=== PATIENT | male | born 1940 | race Caucasian/White ===

== ENCOUNTER 2020-05-20 13:25 | Outpatient (CLI) | payer MEDICARE, SELFPAY ==
[2020-05-20 14:27] LABS: Prostate Specific Antigen 3.6 ng/mL (< OR = 4.0)
== END 2020-05-20 13:26 | disposition home or self-care (01) ==
PROVIDERS: PCP Family Medicine; Visit Provider Urology
DX: R97.20 Elevated prostate specific antigen [PSA] (principal)
CPT/HCPCS: 36415; 84153

== ENCOUNTER 2020-09-16 14:05 | Outpatient (CLI) | payer MEDICARE, SELFPAY ==
--- NOTE | ~2020-09-16 | US_ITS ---
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 COMPARISON: None. FINDINGS: Right and left brachial artery pressures of 111 mm Hg and 126 mm Hg, respectively, are concordant (no rmal difference <= 30 mmHg). The left high thigh pressure index is 1.14 (normal > 1.2). The high righ t thigh pressure index was unable to be obtained due to stenting in the right thigh. The right ankle-brachial index (GERMAN) is 0.87 (normal >= 0.9-1). The right great toe-brachial index (T BI) is 0.55 (normal >= 0.6-0.8). The right lower extremity segmental pressure gradients are normal (n ormal gradients <= 20-30 mmHg between adjacent levels on the same leg or the same levels on the two l egs). Arterial waveforms are biphasic with brisk systolic upstrokes throughout. The left GERMAN is 0.95. The left TBI is 0.67. The left lower extremity segmental pressure gradients are normal. Arterial waveforms are biphasic with brisk systolic upstrokes throughout. IMPRESSION: 1. Arterial occlusive disease to the right lower limb with mildly decreased right high thigh, ankle-b rachial and toe brachial indices. 2. No significant arterial occlusive disease to the left lower limb with normal corresponding left-si ded indices. Reviewed, dictated and finalized at location A. [employer] IMPRESSION: 1. Arterial occlusive disease to the right lower limb with mildly decreased rig ht high thigh, ankle-brachial and toe brachial indices. 2. No significant arterial occlusive disease to the left lower limb with normal corresponding left-sided indices.
== END 2020-09-16 14:06 | disposition home or self-care (01) ==
LOC: ANHIMG 14:13
PROVIDERS: PCP Family Medicine; Visit Provider Internal Medicine Cardiovascular Disease
DX: I73.9 Peripheral vascular disease, unspecified (principal); I77.1 Stricture of artery
CPT/HCPCS: 93923

== ENCOUNTER → 2020-11-09 13:24 | Outpatient (CLI) | payer MEDICARE, SELFPAY ==
--- NOTE | ~2020-11-09 | XR_ITS ---
EXAMINATION: XR chest 2V DATE: 11/09/2020 13:48 INDICATION: Contact with and suspected exposure to asbestos. Left chest pain. TECHNIQUE: Frontal and lateral views of the chest were obtained. COMPARISON: Chest 2 views 09/16/2011 FINDINGS: The chest demonstrates clear lungs without pneumonia, pleural effusion, or pneumothorax. Th e heart size is normal. There are prominent paracardial fat pads. There is a total right shoulder art hroplasty. There are suture anchors in left scapula and humeral head. IMPRESSION: 1. No acute cardiopulmonary disease. Reviewed, dictated and finalized at location A. 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
== END ==
PROVIDERS: PCP Family Medicine; Visit Provider Physician Assistant Medical
DX: Z77.090 Contact with and (suspected) exposure to asbestos (principal); R07.89 Other chest pain
CPT/HCPCS: 71046

== ENCOUNTER → 2020-12-25 01:05 | Outpatient (CLI) | payer MEDICARE, SELFPAY ==
[2020-12-25 19:13] LABS: SARS-CoV-2 RNA PCR Negative
== END ==
PROVIDERS: PCP Family Medicine; Visit Provider Internal Medicine Gastroenterology
DX: Z01.812 Encounter for preprocedural laboratory examination (principal); Z20.822 Contact with and (suspected) exposure to COVID-19
CPT/HCPCS: C9803; U0003; U0005

== ENCOUNTER 2020-12-29 02:56 | Day surgery (SDC) | payer MEDICARE, SELFPAY ==
[2020-12-14 15:51] VITALS: BMI 25.9
[2020-12-29 08:56] VITALS: BP 118/59; PULSE 60; RESP 20; TEMP 36.6; O2SAT 100
[2020-12-29] MEDS: LACTATED RINGERS 1,000 ML 150 ML IV CONT (09:11)
--- NOTE | 2020-12-29 09:22 | WPDANESEPPF ---
Anes - Initial Pre Proc Eval Procedure: Operation Date: 12/29/20 10:00 Proposed Procedures p Colonoscopy - Gerald Oliva MD Date/Time: 12/29/20 09:22 Surgeon: Gerald Oliva MD Pre Op Diagnosis: Positive Cologuard Patient Data Age: 80 Gender: M Height: 5 ft 10 in Weight: 81.5 kg Last Vital Signs Temp 97.8 F 12/29/20 08:56 Pulse 60 12/29/20 08:56 Resp 20 12/29/20 08:56 BP 118/59 L 12/29/20 08:56 Pulse Ox 100 12/29/20 08:56 Allergies Allergy/AdvReac Type Severity Reaction Status Date / Time Penicillins Allergy Mild Unknown Verified 12/29/20 08:52 Sulfa (Sulfonamide Allergy Mild Unknown Verified 12/29/20 08:52 Antibiotics) amoxicillin Allergy Unknown Verified 12/29/20 08:52 Home Medications Medication Instructions Recorded Confirmed Type aspirin 81 mg tablet,delayed 81 mg PO BID #60 tablet 11/09/20 12/14/20 Rx release cholecalciferol (vitamin D3) 125 125 mcg PO DAILY #30 cap 11/09/20 12/14/20 Rx mcg (5,000 unit) capsule finasteride 5 mg tablet 5 mg PO DAILY #30 tablet 11/09/20 12/14/20 Rx metoprolol tartrate 25 mg tablet 25 mg PO DAILY #30 tablet 11/09/20 12/14/20 Rx multivitamin 1 tablet PO DAILY #30 tablet 11/09/20 12/14/20 Rx pantoprazole 40 mg tablet,delayed 40 mg PO QAM #30 tablet 11/09/20 12/14/20 Rx release rosuvastatin 40 mg tablet 40 mg PO DAILY #30 tablet 11/09/20 12/14/20 Rx coenzyme Q10 [Co Q-10] 100 mg PO DAILY 12/14/20 12/14/20 History Patient hx anesthesia problems: none Family hx anesthesia problems: none PMFSH Past Medical History Medical History (Updated 12/29/20 @ 09:20 by Chris Wilkinson MD) Essential hypertension Hyperlipidemia PVD (peripheral vascular disease) with claudication Surgical History Surgical History (Updated 11/09/20 @ 09:28 by Deidra Jean Baptiste) History of heart artery stent History of shoulder surgery Family History Family History (Updated 11/09/20 @ 09:30 by Deidra Jean Baptiste) Other Cerebrovascular accident Lung cancer Social History Social History (Updated 11/09/20 @ 09:30 by Deidra Jean Baptiste) Smoking packs per day: 0.5 Smoking cigarettes per day: 10.0 Years smoked: 12 Smoking pack-years: 6.00 Smoking status: Former smoker Tobacco type: cigarettes Alcohol intake: never Substance use: never Substance use type: does not use Living arrangements: with family Spiritual care concerns: No Anes - Eval Final PreProcedure Day of Procedure 12/29/20 09:22 Patient weight: overweight Heart: regular rate and rhythm Lungs: clear to auscultation Airway: Mallampati scale class III Neurological: alert and oriented Last oral intake: >/= 8 hours ASA classification: III Emergent: no Anesthetic plan: proceed Anesthesia type and monitoring: general GIVS and standard monitoring Informed Consent: The patient's anesthetic plan and its attendant risks and benefits were discussed with the patient/family/POA. Questions were solicited and answers provided to the satisfaction of the patient/family/POA.
--- NOTE | 2020-12-29 09:50 | PM.HPGS ---
History of Present Illness History of Present Illness Consent: Risks, benefits, and alternatives have been discussed and questions answered. Patient agrees to proceed with procedure. Chief complaint: Positive Cologuard Narrative: Joey Lewis is a 80 year old male with cologuard +, last colonoscopy 15 years ago. Review of Systems Constitutional: Constitutional: Denies headache(s) and Denies weakness Eyes: Eyes: Denies blurry vision ENT: Reports Normal hearing present, Denies headache(s) and Denies neck pain Cardiovascular: Cardiovascular: Denies chest pain and Denies dyspnea Respiratory: Respiratory: Denies dyspnea Gastrointestinal: Gastrointestinal: Reports no additional gastrointestinal complaints Genitourinary: Genitourinary: Denies dysuria Musculoskeletal: Musculoskeletal: Denies neck pain Integumentary/Breasts: Skin/Breast: Denies dry skin Neurologic: Reports Normal hearing present, Denies headache(s) and Denies weakness Psychiatric: Psychiatric: Denies anxiety Endocrine: Endocrine: Denies change in body appearance Hematologic/Lymphatic: Hematologic/Lymphatic: Denies easy bleeding Allergic/Immunologic: Allergic/Immunologic: Denies urticaria [facility] Past Medical History Medical History (Updated 12/29/20 @ 09:20 by Chris Wilkinson MD) Essential hypertension Hyperlipidemia PVD (peripheral vascular disease) with claudication Surgical History Surgical History (Updated 11/09/20 @ 09:28 by Deidra Jean Baptiste) History of heart artery stent History of shoulder surgery Family History Family History (Updated 11/09/20 @ 09:30 by Deidra Jean Baptiste) Other Cerebrovascular accident Lung cancer Social History Social History (Updated 11/09/20 @ 09:30 by Deidra Jean Baptiste) Smoking packs per day: 0.5 Smoking cigarettes per day: 10.0 Years smoked: 12 Smoking pack-years: 6.00 Smoking status: Former smoker Tobacco type: cigarettes Alcohol intake: never Substance use: never Substance use type: does not use Living arrangements: with family Spiritual care concerns: No Meds Home Medications and Allergies Home Medications Medication Instructions Recorded Confirmed Type aspirin 81 mg tablet,delayed 81 mg PO BID #60 tablet 11/09/20 12/14/20 Rx release cholecalciferol (vitamin D3) 125 125 mcg PO DAILY #30 cap 11/09/20 12/14/20 Rx mcg (5,000 unit) capsule finasteride 5 mg tablet 5 mg PO DAILY #30 tablet 11/09/20 12/14/20 Rx metoprolol tartrate 25 mg tablet 25 mg PO DAILY #30 tablet 11/09/20 12/14/20 Rx multivitamin 1 tablet PO DAILY #30 tablet 11/09/20 12/14/20 Rx pantoprazole 40 mg tablet,delayed 40 mg PO QAM #30 tablet 11/09/20 12/14/20 Rx release rosuvastatin 40 mg tablet 40 mg PO DAILY #30 tablet 11/09/20 12/14/20 Rx coenzyme Q10 [Co Q-10] 100 mg PO DAILY 12/14/20 12/14/20 History Allergies Allergy/AdvReac Type Severity Reaction Status Date / Time Penicillins Allergy Mild Unknown Verified 12/29/20 08:52 Sulfa (Sulfonamide Allergy Mild Unknown Verified 12/29/20 08:52 Antibiotics) amoxicillin Allergy Unknown Verified 12/29/20 08:52 Vital Signs Vital Signs - 24 hr 12/29/20 08:56 Temperature 97.8 F Pulse Rate 60 Respiratory Rate 20 Blood Pressure 118/59 L Pulse Oximetry 100 Exam Const: General: comfortable and no acute distress HENMT: General nose exam: Normal nares present Eyes: General: appearance normal, both eyes and all related structures Neck: Neck: no JVD Resp: Auscultation: clear to auscultation bilaterally Cardio: Rate: regular rate Rhythm: regular rhythm GI: Inspection: non-distended GI Palp: Yes Soft to palpation Skin: General skin exam: normal color Neuro: General: gait normal Speech: normal speech Extrem: General: normal to inspection Psych: Mental Status: mental status grossly normal Assessment and Plan Assessment and plan (1) Positive colorectal cancer screening using Cologuard test: Code(s)
[2020-12-29 10:16] VITALS: BP 99/62; PULSE 61; RESP 16; O2SAT 100
[2020-12-29 10:26] VITALS: BP 105/62; PULSE 60; RESP 14; O2SAT 99
== END 2020-12-29 10:55 | disposition home or self-care (01) ==
PROVIDERS: PCP Family Medicine; Visit Provider Internal Medicine Gastroenterology
PROC: 0DJD8ZZ Inspection of Lower Intestinal Tract, Via Natural or Artificial Opening Endoscopic (ICD-10-PCS; CPT 45378; principal; 2020-12-29 10:00)
DX: R19.5 Other fecal abnormalities (principal); D12.0 Benign neoplasm of cecum; K57.30 Diverticulosis of large intestine without perforation or abscess without bleeding; K64.8 Other hemorrhoids; I10 Essential (primary) hypertension; E78.5 Hyperlipidemia, unspecified; I73.9 Peripheral vascular disease, unspecified; Z79.82 Long term (current) use of aspirin; Z87.891 Personal history of nicotine dependence
CPT/HCPCS: 45385; 88305; J2704; J7120

== ENCOUNTER → 2021-11-17 10:54 | Outpatient (CLI) | payer MEDICARE, SELFPAY ==
--- NOTE | ~2021-11-17 | XR_ITS ---
EXAMINATION: XR chest 2V EXAM DATE: 11/17/2021 11:34 INDICATION: R05.3 - Chronic cough . TECHNIQUE: Frontal and lateral projections of the chest obtained and reviewed. There is no prior jovany dy for comparison. FINDINGS: The lungs are clear. There are no pleural effusions. The cardiomediastinal silhouette is within normal limits. There is no pneumothorax suspected. Right shoulder replacement. IMPRESSION: No acute cardiopulmonary findings. Reviewed, dictated and finalized at location B. HEMATOLOGY
== END ==
PROVIDERS: PCP Family Medicine; Visit Provider Physician Assistant Medical
DX: R05.3 Chronic cough (principal)
CPT/HCPCS: 71046

== ENCOUNTER 2022-01-18 17:26 | Emergency (ER) | payer MEDICARE, SELFPAY ==
--- NOTE | 2022-01-18 17:36 | ED.MALEGU ---
HPI - Male Genitourinary General Chief complaint: Urogenital-Male Stated complaint: uti complaints Time Seen by Provider: 01/18/22 17:36 Source: patient Mode of arrival: ambulatory Limitations: no limitations History of Present Illness HPI Narrative: Joey Lewis is an 81 yo male with a PMH of BPH, HTN, GERD, high cholesterol, who comes to [facility] with complaints of frequency, burning. burning when he urinates that started at noon today. Has been drinking a lot of water but continues to have blood in urine with frequency. patient has been treated for hyperplasia of prostate and was screened for colon cancer in May of last year using cologuard which was positive and then had a colonoscopy. Had cataract surgery on Sunday Related Data Home Medications Medication Instructions Recorded Confirmed coenzyme Q10 [Co Q-10] 100 mg PO DAILY 12/14/20 01/18/22 Allergies Allergy/AdvReac Type Severity Reaction Status Date / Time Penicillins Allergy Mild Unknown Verified 01/18/22 17:39 Sulfa (Sulfonamide Allergy Mild Unknown Verified 01/18/22 17:39 Antibiotics) amoxicillin Allergy Unknown Verified 01/18/22 17:39 Review of Systems Review of Systems: CONSTITUTIONAL: Denies fever, chills, sweats. EYES: Denies visual changes, redness, discharge. ENT: Denies rhinorrhea, congestion, sore throat, otalgia. CARDIOVASCULAR: Denies chest pain, palpitations, edema. RESPIRATORY: Denies dyspnea, wheezing, cough GASTROINTESTINAL: Denies abdominal pain, nausea, vomiting, diarrhea. GENITOURINARY: has dysuria, has hematuria, no abnormal discharge SKIN: Denies rash or itching. NEUROLOGIC: Denies numbness, or focal weakness. PSYCHIATRIC: Denies anxiety or depression. [facility] Past Medical History Medical History BMI 25.0-25.9,adult BMI 26.0-26.9,adult BPH (benign prostatic hyperplasia) Essential hypertension Hyperlipidemia PVD (peripheral vascular disease) with claudication Surgical History Surgical History History of heart artery stent History of shoulder surgery Family History Family History Father Cerebrovascular accident Mother Lung cancer Sibling , Onset Age: 51 MVC Sibling Hypoglycemia Social History Social History Smoking packs per day: 0.5 Smoking cigarettes per day: 10.0 Years smoked: 12 Smoking pack-years: 6.00 Tobacco type: cigarettes Second hand tobacco smoke exposure: Yes Alcohol intake: current Substance use: never Substance use type: does not use 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 There is no relevant family history pertinent to the presenting complaint. Exam Narrative: GENERAL: This is a well-nourished, well-developed patient, in mild distress. HEAD: normocephalic, atraumatic. EYES: Sclera clear/white. Vision is grossly intact. EARS: External ears normal, . Hearing grossly intact. NOSE: External nose normal without nasal discharge, nares without redness, no rhinorrhea. THROAT: Mucous membranes moist, NECK: Neck supple, non-tender CARDIOVASCULAR: Regular rate and rhythm without murmurs, gallops, or rubs. RESPIRATORY: Clear to auscultation. Breath sounds equal bilaterally. No wheezes, rales, or rhonchi. GASTROINTESTINAL: Abdomen soft, no abdominal tenderness, no suprapubic tenderness SKIN: warm, intact with no suspicious lesions or rash, good texture and turgor. NEURO: awake, alert, and oriented to person, place and time. There were no obvious focal neurologic abnormalities. Steady gait EX
[2022-01-18 17:43] VITALS: BP 154/80; PULSE 85; RESP 18; TEMP 36.9; O2SAT 99
== END 2022-01-18 18:01 | disposition home or self-care (01) ==
PROVIDERS: Emergency Provider Nurse Practitioner; PCP Family Medicine
DX: N30.01 Acute cystitis with hematuria (principal); F17.210 Nicotine dependence, cigarettes, uncomplicated; N40.0 Benign prostatic hyperplasia without lower urinary tract symptoms; I10 Essential (primary) hypertension; E78.5 Hyperlipidemia, unspecified; I70.219 Atherosclerosis of native arteries of extremities with intermittent claudication, unspecified extremity; E78.00 Pure hypercholesterolemia, unspecified
CPT/HCPCS: 81003; 87077; 87086; 87186; 99213; G0463

== ENCOUNTER 2022-03-16 14:24 | Outpatient (CLI) | payer MEDICARE, SELFPAY ==
--- NOTE | ~2022-03-16 | US_ITS ---
EXAMINATION: US art doppler w press LE DATE: 03/16/2022 15:42 INDICATION: Peripheral arterial disease. TECHNIQUE: Segmental pressures and plethysmographic and Doppler waveforms of the brachial and lower e xtremity arteries were obtained. COMPARISON: Arterial Doppler and segmental pressures 09/16/2020 FINDINGS: Right and left brachial artery pressures of 115 mm Hg and 116 mm Hg, respectively, are concordant (no rmal difference <= 30 mmHg). The right thigh pressures were not measured. The right ankle-brachial index (GERMAN) is 0.97 (normal >= 0.9-1.0). The right great toe-brachial index (TBI) is 0.53 (normal >= 0.65). Arterial Doppler wavefor ms are biphasic from common femoral artery to the ankle. The left high-thigh pressure index is 1.39. The left GERMAN is 0.94. The left TBI is 0.46. The left lowe r extremity segmental pressure gradients are normal. Arterial Doppler waveforms are biphasic from com mon femoral artery to the ankle. IMPRESSION: 1. Mildly decreased ABIs with improvement on the right, consistent with arterial occlusive disease. Reviewed, dictated and finalized at location A. IMPRESSION: 1. Mildly decreased ABIs with improvement on the right, consistent with arteria l occlusive disease.
== END 2022-03-16 14:25 | disposition home or self-care (01) ==
PROVIDERS: PCP Family Medicine; Visit Provider Internal Medicine Cardiovascular Disease
DX: I73.9 Peripheral vascular disease, unspecified (principal)
CPT/HCPCS: 93923

== ENCOUNTER 2022-05-31 15:38 | Outpatient (CLI) | payer MEDICARE, SELFPAY ==
--- NOTE | ~2022-05-31 | MR_ITS ---
EXAMINATION: MR brain/brain stem wo/w con DATE: 05/31/2022 16:33 INDICATION: Imbalance, weakness and memory changes. TECHNIQUE: Magnetic resonance imaging (MRI) of the brain and brainstem was performed without and with 16 mL Multihance intravenous contrast. Sequences included sagittal and axial T1-weighted SE, axial d iffusion-weighted FS SE, axial T2*-weighted GRE, axial 3D SWAN, axial T2-weighted FLAIR, and axial T2 -weighted FSE. Postcontrast axial and coronal T1-weighted SE was obtained. Apparent diffusion coeffic ient (ADC) maps were created. COMPARISON: None. FINDINGS: There are no areas of restricted diffusion to suggest acute infarction. No intracranial hemorrhage or abnormal intracranial mass lesion. There are scattered areas of nonspecific increased T2-weighted si gnal intensity in the cerebral white matter, predominantly involving the deep and periventricular whi te matter which is within normal limits for age and likely sequela of chronic small vessel ischemic d isease. There are no intraparenchymal signal abnormalities seen on the other pulse sequences. Symmetr ic prominence of the sulci consistent with mild age-appropriate diffuse cerebral volume loss. The ve ntricles are symmetric and normal in size. There are no abnormal extra-axial fluid collections. Flow voids are seen in the cerebral arteries on the T2-weighted sequences consistent with their expected p atency. Changes of bilateral intraocular lens replacement. Visualized orbits and soft tissues are un remarkable. There is thickening of the carvajal of the right maxillary sinus consistent with chronic sin usitis. There are no areas of abnormal enhancement on the post contrast images. IMPRESSION: 1. No acute intracranial process or abnormally enhancing brain lesions. 2. Age-related changes including mild diffuse volume loss and several scattered small regions of nons pecific white matter T2 hyperintensity which is within normal limits for age and most likely sequela of chronic small vessel ischemic disease. Reviewed, dictated and finalized at location A. IMPRESSION: 1. No acute intracranial process or abnormally enhancing brain lesions. 2. Age-related changes including mild diffuse volume loss and several scattered small regions of nonspecific white matter T2 hyperintensity which is within no rmal limits for age and most likely sequela of chronic small vessel ischemic di sease.
== END 2022-05-31 15:39 | disposition home or self-care (01) ==
LOC: ANHIMG 15:40
PROVIDERS: PCP Family Medicine; Visit Provider Physician Assistant Medical
DX: R26.89 Other abnormalities of gait and mobility (principal); R41.3 Other amnesia; R53.1 Weakness; R93.0 Abnormal findings on diagnostic imaging of skull and head, not elsewhere classified
CPT/HCPCS: 70553; A9577

== ENCOUNTER → 2023-01-12 09:02 | Outpatient (CLI) | payer MEDICARE, SELFPAY ==
--- NOTE | ~2023-01-12 | MR_ITS ---
EXAMINATION: MR brain/brain stem wo con DATE: 01/12/2023 09:52 INDICATION: Amnesia. Leaning to the left while walking. TECHNIQUE: Magnetic resonance imaging (MRI) of the brain and brainstem was performed without intraven ous contrast. COMPARISON: Brain MRI 05/31/2022 FINDINGS: There are scattered areas of nonspecific increased T2-weighted signal intensity in the cere bral white matter. There is no intracranial hemorrhage, acute infarction, or abnormal intracranial ma ss lesion. The ventricles are normal in size. There is mild mucosal thickening in right maxillary sin us. The mastoid air cells are normal. There are likely changes of ocular lens replacement surgeries. IMPRESSION: 1. Stable mild nonspecific cerebral white matter disease, which likely represents chronic small vesse l ischemic disease. Reviewed, dictated and finalized at location A. IMPRESSION: 1. Stable mild nonspecific cerebral white matter disease, which likely represen ts chronic small vessel ischemic disease.
== END ==
PROVIDERS: PCP Family Medicine; Visit Provider Student in an Organized Health Care Education/Training Program
DX: R41.3 Other amnesia (principal); R93.0 Abnormal findings on diagnostic imaging of skull and head, not elsewhere classified
CPT/HCPCS: 70551

== ENCOUNTER 2023-01-22 07:44 | Outpatient (CLI) | payer MEDICARE, SELFPAY ==
--- NOTE | 2023-01-22 07:49 | ECG_ITS ---
Measurements Intervals [place] Rate: 56 P: 24 PA: 165 QRS: 21 QRSD: 93 T: 29 QT: 406 QTc: 394 Interpretive Statements SINUS BRADYCARDIA OTHERWISE WITHIN NORMAL LIMITS NO PREVIOUS ECG AVAILABLE FOR COMPARISON Electronically Signed On 01-22-2023 10:43:21 CDT by Mir Ortega M.D.
== END 2023-01-22 07:45 | disposition home or self-care (01) ==
PROVIDERS: PCP Family Medicine; Visit Provider Surgery
DX: Z01.818 Encounter for other preprocedural examination (principal); I10 Essential (primary) hypertension
CPT/HCPCS: 93005

== ENCOUNTER 2023-01-26 00:33 | Day surgery (SDC) | payer MEDICARE, SELFPAY ==
--- NOTE | 2023-01-15 15:25 | PC.NURSE ---
Report to the Outpatient Waiting Room, entrance under the green pavilion located off [facility], at time 1000 on date __01/26/23 . Planned Procedure Time: _1200 . Time changes happen often and if your time is changed the preop area will call you the afternoon before. - You and your visitor will be asked to self-screen and do not enter if you have any COVID symptoms. - A mask is optional within the hospital at this time. Patients may have clear liquids (water, carbonated beverages, clear teas, apple juice) until 3 hours prior to surgery with a maximum of 20 ounces. - No food from midnight until time of surgery - Infants may have breast milk until 4 hours before surgery, infant formula 6 hours prior to surgery. - Children will be allowed to drink immediately following surgery. If applicable, please bring a bottle or sippy cup to assist with drinking. Juice, water, soda, and popsicles are readily available. For infants on formula, please bring formula the day of surgery. Pacifiers are allowed. Take the following medications with a SIP of water the morning of surgery: ___NONE DO NOT STOP ANY OF YOUR OTHER PRESCRIPTION MEDICATIONS PRIOR TO SURGERY ?EXCEPT THE FOLLOWING Medications to discontinue per physician __ALL VITAMNIS/SUPPLEMENTS 3 DAYS PRE OP. LAST DOSE 01/23/23 HIBICLENS SHOWER MORNING OF SURGERY Please no make-up, nail georgian, hairspray, perfume, deodorant, or body powder the day of surgery. No jewelry (including any body piercings) or valuables the day of surgery, leave them at home. Please take a shower or bath the night before, or the morning of, surgery with an antibacterial soap. Wear comfortable, loose fitting clothing. Children are encouraged to wear pajamas. - Jewelry must be removed prior to entering the operating room. Rings and piercings that are not removed may be cut off. - The hospital will not accept responsibility for valuables. - Please leave all valuables, including medications, at home the day of surgery. If you are going home after surgery, a licensed pick up driver must drive you home. - NO public transportation without another adult if you receive anesthesia. - We recommend that an adult stay with you for 24 hours following discharge. - We also recommend that you do not drive, make important decision, drink alcoholic beverages, or take any drugs that were not prescribed by your health care provider for at least 24 hours after your discharge time. Follow any additional instructions given to you from your surgeon. If you or anyone in your household have experienced Covid symptoms in the past week, please notify your surgeon or the nurse liaison at the phone number below for possible testing. Telephone instructions given to _PATIENT AND RIGOBERTO and asked if any additional questions and then verbalized understanding. Patient advised to call surgeon office or pre surgery nurse liaison [phone] if any additional questions.
[2023-01-15 15:31] VITALS: BMI 27.3
[2023-01-26] VITALS (9 sets, daily range): BP systolic 111–140; BP diastolic 66–89; PULSE 56–65; RESP 10–16; TEMP 36.3–36.6; O2SAT 95–100
[2023-01-26] MEDS: ACETAMINOPHEN 500 MG TABLET 1000 MG PO (10:47)
[2023-01-26] MEDS: LACTATED RINGERS 1,000 ML 30 ML IV CONT (11:00)
[2023-01-26] MEDS: KETOROLAC 15 MG/ML VIAL (*BKC) IV PUSH (11:05)
--- NOTE | 2023-01-26 11:29 | WPDANESEPPF ---
Anes - Initial Pre Proc Eval Procedure: Operation Date: 01/26/23 12:00 Proposed Procedures p Open Umbilical Hernia Repair with Possible Mesh - Sesar Torrez DO Date/Time: 01/26/23 11:29 Surgeon: Sesar Torrez DO Pre Op Diagnosis: Umb Hernia Patient Data Age: 82 Gender: M Height: 1.73 m Weight: 83.4 kg Last Vital Signs Temp 36.3 C L 01/26/23 10:50 Pulse 63 01/26/23 10:50 Resp 16 01/26/23 10:50 BP 116/77 01/26/23 10:50 Pulse Ox 95 01/26/23 10:50 O2 Del Method Room Air 01/26/23 10:50 Allergies Allergy/AdvReac Type Severity Reaction Status Date / Time amoxicillin Allergy Severe Anaphylaxis Verified 01/26/23 10:29 Penicillins Allergy Severe Rash/THROAT Verified 01/26/23 10:29 SWELLING Sulfa (Sulfonamide Allergy Mild Unknown Verified 01/26/23 10:24 Antibiotics) Home Medications Medication Instructions Recorded Confirmed Type cholecalciferol (vitamin D3) 125 125 mcg PO DAILY #30 caps 11/09/20 01/26/23 Rx mcg (5,000 unit) capsule multivitamin (Daily Multi-Vitamin 1 tablet PO DAILY #30 tabs 11/09/20 01/26/23 Rx tablet) aspirin 81 mg tablet,delayed 81 mg PO ONCE #30 tabs 05/17/22 01/26/23 Rx release (Adult Aspirin Regimen) donepezil 5 mg tablet (Aricept) 5 mg PO QHS #30 tabs 12/14/22 01/26/23 Rx gabapentin 100 mg capsule 100 mg PO HS 12/14/22 01/26/23 History ascorbic acid (vitamin C) 500 mg 500 mg PO DAILY 01/15/23 01/26/23 History capsule coQ10 (ubiquinol) 100 mg capsule 100 mg PO DAILY 01/15/23 01/26/23 History metoprolol tartrate 25 mg tablet 25 mg PO HS 01/15/23 01/26/23 History pantoprazole 40 mg tablet,delayed 40 mg PO HS 01/15/23 01/26/23 History release rosuvastatin 40 mg tablet 40 mg PO HS 01/15/23 01/26/23 History Patient hx anesthesia problems: none Family hx anesthesia problems: none Results Review: All pre-operative results and documents have been reviewed as part of the pre-operative evaluation. [facility] Past Medical History Medical History BMI 25.0-25.9,adult BMI 26.0-26.9,adult BPH (benign prostatic hyperplasia) Essential hypertension Hyperlipidemia PVD (peripheral vascular disease) with claudication Surgical History Surgical History History of heart artery stent History of shoulder surgery Family History Family History Father Cerebrovascular accident Mother Lung cancer Sibling , Onset Age: 51 MVC Sibling Hypoglycemia Social History Social History Smoking packs per day: 1 Smoking cigarettes per day: 20.0 Years smoked: 20 Smoking pack-years: 20.00 Smoking status: Former smoker Tobacco type: cigarettes Second hand tobacco smoke exposure: Yes Smoking end date: 10/08/74 Alcohol intake: former Substance use: never Substance use type: does not use Lack of Transportation: No Lack of Food: Never True Current Housing: I Have Housing Concerned About Future Housing: No Difficulty Paying Gas/Electric Bills: No Difficulty Paying for Meds: No Currently Unemployed: No Education: Associate Degree Difficulty w/ Childcare or Family Care: No Living arrangements: with family Occupation/Education: retired 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
--- NOTE | 2023-01-26 12:20 | WPDHPUPDATE1 ---
History and Physical Update Update Date/Time: 01/26/23 12:20 History and Physical has been reviewed, including an updated exam of the patient. There are NO changes in the patient's condition. Risks, benefits, and alternatives have been discussed and questions answered. Patient agrees to proceed with procedure.
--- NOTE | 2023-01-26 12:20 | PM.IMHP ---
H&P: HPI History of Present Illness Date/Time: 01/26/23 12:20 Chief Complaint: Umbilical hernia Narrative: This is an 82-year-old man who presents for umbilical hernia repair. He reports no changes with the hernia since last seen in the office. He does feel that he has some increased abdominal girth over the past 6 months but has no abdominal pain or change in bowel habits. Review of Systems Review of Systems: All systems reviewed & are unremarkable except as noted in HPI and below Constitutional: Constitutional: Denies chills, Denies fever(s), Denies headache(s) and Denies weight loss Eyes: Eyes: Denies change in vision ENT: Denies dizziness, Denies headache(s), Denies neck mass and Denies throat swelling Cardiovascular: Cardiovascular: Denies chest pain, Denies lightheadedness and Denies dyspnea Respiratory: Respiratory: Denies cough, Denies dyspnea and Denies wheezing Gastrointestinal: Gastrointestinal: Denies abdominal pain, Denies change in bowel habits, Denies nausea and Denies vomiting Genitourinary: Genitourinary: Denies hematuria and Denies dysuria Musculoskeletal: Musculoskeletal: Reports as per HPI Integumentary/Breasts: Skin/Breast: Reports as per HPI Neurologic: Denies dizziness and Denies headache(s) Allergic/Immunologic: Allergic/Immunologic: Denies throat swelling and Denies wheezing PMF Past Medical History Medical History BMI 25.0-25.9,adult BMI 26.0-26.9,adult BPH (benign prostatic hyperplasia) Essential hypertension Hyperlipidemia PVD (peripheral vascular disease) with claudication Surgical History Surgical History History of heart artery stent History of shoulder surgery Family History Family History Father Cerebrovascular accident Mother Lung cancer Sibling , Onset Age: 51 MVC Sibling Hypoglycemia Social History Social History Smoking packs per day: 1 Smoking cigarettes per day: 20.0 Years smoked: 20 Smoking pack-years: 20.00 Smoking status: Former smoker Tobacco type: cigarettes Second hand tobacco smoke exposure: Yes Smoking end date: 10/08/74 Alcohol intake: former Substance use: never Substance use type: does not use Lack of Transportation: No Lack of Food: Never True Current Housing: I Have Housing Concerned About Future Housing: No Difficulty Paying Gas/Electric Bills: No Difficulty Paying for Meds: No Currently Unemployed: No Education: Associate Degree Difficulty w/ Childcare or Family Care: No Living arrangements: with family Occupation/Education: retired 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 Gender identity (if verbalized by the patient): Male Spiritual care concerns: No Meds Home Medications and Allergies Home Medications Medication Instructions Recorded Confirmed Type cholecalciferol (vitamin D3) 125 125 mcg PO DAILY #30 caps 11/09/20 01/26/23 Rx mcg (5,000 unit) capsule multivitamin (Daily Multi-Vitamin 1 tablet PO DAILY #30 tabs 11/09/20 01/26/23 Rx tablet) aspirin 81 mg tablet,delayed 81 mg PO ONCE #30 tabs 05/17/22 01/26/23 Rx release (Adult Aspirin Regimen) donepezil 5 mg tablet (Aricept) 5 mg PO QHS #30 tabs 12/14/22 01/26/23 Rx gabapentin 100 mg capsule 100 mg PO HS 12/14/22 01/26/23 History ascorbic acid (vitamin C) 500 mg 500 mg PO DAILY 01/15/23 01/26/23 History capsule coQ10 (ubiquinol) 100 mg capsule 100 mg PO DAILY 01/15/23 01/26/23 History metoprolol tartrate 25 mg tablet 25 mg PO HS 01/15/23 01/26/23 History pantoprazole 40 mg tablet,delayed 40 mg PO HS 01/15/23 01/26/23 History release rosuvastatin 40 mg tablet 40 mg PO HS 01/15/23 01/26/23 History Allergies Allergy/AdvR
[2023-01-26] MEDS: ceFAZolin 2 GM/D5W 50 ML 2 GM/50 ML BAG IVPB (13:17)
[2023-01-26] MEDS: BUPIVACAINE/EPINEPHRINE 0.25% 50 ML VIAL 30 ML INFILTRATE (13:40)
--- NOTE | 2023-01-26 14:03 | P.OP_ITS ---
Procedure Note - Detailed Date of Procedure 01/26/23 Pre-op Diagnosis Umbilical hernia Post-op Diagnosis Same (1.5 cm) Procedure Performed Open 1.5 cm umbilical hernia repair with 6.[address] hernia patch Surgeon Sesar Torrez, DO Anesthesia General and Local (0.5% bupivacaine with epinephrine) Indications This is an 82-year-old man who noticed a bulge in slight tenderness at his umbilicus over the last 6 months or so. He denied any injury that cause this. He was found to have a small reducible umbilical hernia on physical exam. Discussions were made with the patient about his treatment options and decision was made to proceed with open umbilical hernia repair with possible mesh. Findings Open umbilical hernia repair was performed. The hernia defect was about 1.5 cm wide. The hernia sac was reduced and a preperitoneal pocket was created. A 6.[address] hernia patch was then placed within the preperitoneal pocket and secured with the fascial closure using 0 Ethibond [id number] sutures. No specimens were obtained for pathology. Description of Procedure Procedure as well as risks, benefits, and alternatives were discussed with the patient. Written consent was obtained and placed in chart prior to procedure. Patient was brought back to surgical suite. He was placed supine on operating table. He was then intubated by Anesthesia Department. His abdomen was prepped and draped in sterile fashion using chlorhexidine prep. 0.5% bupivacaine with epinephrine was infiltrated locally around the operative area. A 4 cm curvilinear incision was made just superior to the umbilicus using a 15 blade scalpel. Electrocautery was used for hemostasis and for dissection down through the subcutaneous fat. Hernia sac was encountered and this was carefully freed up from surrounding subcutaneous fat using electrocautery. The hernia sac was freed up all the way down to the level of the fascia, and then it was reduced into the abdominal cavity. The umbilical stalk was then lifted off of the fascia with electrocautery. The hernia defect was then measured. This was measuring approximately 15 mm. The decision was made to use a 6.[address] hernia patch. The peritoneum was cleared under the fascia circumferentially around the hernia using blunt dissection and electrocautery. Once a wide enough pocket was created for the mesh, the mesh was then placed within this preperitoneal pocket and laid out flat centered on the hernia defect. The mesh appeared to be sitting in proper position. The mesh was then secured as the fascia was closed using 0 Ethibond [id number] sutures. A total of 3 sutures were placed transversely to approximate the fascia and secured the mesh to the abdominal wall. The repair was inspected and appeared secure. 0.5% bupi vacaine with epinephrine was infiltrated around the fascia and subcutaneous space. The umbilical stalk was then reapproximated to the fascia using a 3 0 Vicryl simple interrupted suture. The deep dermis was reapproximated using 3 0 Vicryl simple interrupted sutures, and then the skin was approximated using 4 Monocryl running subcuticular suture. Exofin glue was then applied on top. The patient was then awakened from anesthesia, extubated, and transferred to recovery. Implants 6.[address] hernia patch Estimated Blood Loss 5 Complications No immediate complications Condition Stable Disposition Same day [facility] Billing Surgery - Charge Forward: Surgery Billing
== END 2023-01-26 15:55 | disposition home or self-care (01) ==
PROVIDERS: PCP Family Medicine; Visit Provider Surgery
PROC: (CPT 49591; principal; 2023-01-26 12:00)
DX: K42.9 Umbilical hernia without obstruction or gangrene (principal); I10 Essential (primary) hypertension; E78.5 Hyperlipidemia, unspecified; I73.9 Peripheral vascular disease, unspecified; N40.0 Benign prostatic hyperplasia without lower urinary tract symptoms; Z95.5 Presence of coronary angioplasty implant and graft; Z87.891 Personal history of nicotine dependence; Z79.82 Long term (current) use of aspirin
CPT/HCPCS: 49591; A9270; C1781; J0690; J1100; J1885; J2405; J2704; J3010; J7120

== ENCOUNTER 2023-03-08 13:58 | Outpatient (CLI) | payer MEDICARE, SELFPAY ==
--- NOTE | ~2023-03-08 | US_ITS ---
EXAMINATION: US art doppler w press LE BI DATE: 03/08/2023 15:01 INDICATION: Peripheral arterial occlusive disease. TECHNIQUE: Segmental pressures and plethysmographic and Doppler waveforms of the brachial and lower e xtremity arteries were obtained. COMPARISON: None. FINDINGS: Right and left brachial artery pressures of 121 mm Hg and 116 mm Hg, respectively, are concordant (no rmal difference <= 30 mmHg). The right and left high-thigh pressure indices are unable to be obtained due to inability to occlude the vessels in the left thigh and the presence of a vascular stent in th e right thigh. The right ankle-brachial index (GERMAN) is 1.07 (normal >= 0.9-1). The right great toe-brachial index (T BI) is 0.56 (normal >= 0.6-0.8). The right lower extremity segmental pressure gradients are normal at the right calf (normal gradients <= 20-30 mmHg between adjacent levels on the same leg or the same l evels on the two legs). Arterial waveforms are triphasic at the right common femoral artery and bipha sic in the more distal arteries with brisk systolic upstrokes throughout. The left GERMAN is 1.08. The left TBI is 0.61. The left lower extremity segmental pressure gradients are increased between the left [id number] popliteal artery and the arteries at the left ankle which given the inability to occlude the vessels at the left thigh may be due to artifactual elevated press ures due to vessel wall calcification at the left [id number]-[id number] popliteal artery. Arterial waveforms are biphasic with brisk systolic upstrokes throughout the arteries of the left lower limb. IMPRESSION: 1. Mild arterial occlusive disease to bilateral lower limbs with normal bilateral ABIs but mildly dec reased bilateral TBIs. Reviewed, dictated and finalized at location A. IMPRESSION: 1. Mild arterial occlusive disease to bilateral lower limbs with normal bilater al ABIs but mildly decreased bilateral TBIs.
== END 2023-03-08 13:59 | disposition home or self-care (01) ==
PROVIDERS: PCP Family Medicine; Visit Provider Internal Medicine Cardiovascular Disease
DX: I70.203 Unspecified atherosclerosis of native arteries of extremities, bilateral legs (principal)
CPT/HCPCS: 93923

== ENCOUNTER → 2023-04-23 15:38 | Outpatient (CLI) | payer MEDICARE, SELFPAY ==
--- NOTE | ~2023-04-23 | XR_ITS ---
XR chest 2V 04/23/2023 16:18 Indication: Chronic cough Procedure: 2 view chest Comparison: Comparison to multiple prior studies sequentially, with oldest reviewed study dated 09/07. Findings: Heart size normal. No focal air space disease, pulmonary edema, pleural effusion or suspect ed pneumothorax. There is bibasilar atelectasis. There is a right shoulder arthroplasty. There is mil d thoracic spondylosis. Impression: 1: Bibasilar atelectasis. Reviewed, dictated and finalized at location A. Impression: 1: Bibasilar atelectasis.
== END ==
PROVIDERS: PCP Family Medicine; Visit Provider Family Medicine
DX: R05.3 Chronic cough (principal); J98.11 Atelectasis
CPT/HCPCS: 71046

== ENCOUNTER 2023-05-10 06:46 | Outpatient (CLI) | payer MEDICARE, SELFPAY ==
--- NOTE | ~2023-05-10 | CT_ITS ---
CT of the Abdomen and Pelvis: Indication: Swelling Technique: 2.5 mm axial scans were obtained through the abdomen and pelvis following intravenous adm inistration of 100 cc of Omnipaque 350. Dose reduction technique was used on this scan by utilizing a utomated exposure control and iterative reconstruction technique. The dose-length product (DLP) was 6 04.98 mGy-cm. COMPARISON: 08/24/2004 Findings: Scans through the lung bases are unremarkable. The liver, spleen, pancreas, gallbladder, adrenals and kidneys are within normal limits. There are at herosclerotic calcifications of the aorta. No lymphadenopathy. No bowel obstruction or bowel wall thickening. Normal appendix. Sigmoid diverticulosis noted. Images through the pelvis were performed. Urinary bladder unremarkable. Prostate gland mildly enlarge d. No ascites. Impression: No acute abnormality. Mildly enlarged prostate gland. Reviewed, dictated and finalized at location . Impression: No acute abnormality. Mildly enlarged prostate gland.
[2023-05-10 07:09] LABS: Estimated Glomerular Filt Rate 49
== END 2023-05-10 06:47 | disposition home or self-care (01) ==
PROVIDERS: PCP Family Medicine; Visit Provider Family Medicine
DX: R19.00 Intra-abdominal and pelvic swelling, mass and lump, unspecified site (principal); N40.0 Benign prostatic hyperplasia without lower urinary tract symptoms
CPT/HCPCS: 74177; Q9967

== ENCOUNTER 2023-05-22 16:37 | Outpatient (CLI) | payer MEDICARE, SELFPAY ==
--- NOTE | ~2023-05-22 | CT_ITS ---
EXAMINATION: CT brain wo con DATE: 05/22/2023 17:04 INDICATION: R51.9 - Headache, unspecified . TECHNIQUE: Computed tomography (CT) of the head was performed without intravenous contrast. The mA wa s adjusted according to patient size. Iterative reconstruction technique was employed. The dose-lengt h product was 605.33 mGy-cm. COMPARISON: 05/15/2016. FINDINGS: No acute intracranial hemorrhage or extra-axial fluid collection. No hydrocephalus, mass, or herniation. No acute ischemic infarct. Unremarkable dural venous sinus attenuation. No acute osseous abnormality. Chronic right maxillary wall sclerosis in an otherwise well pneumatized right maxillary sinus, likely from prior and now resolved chronic sinusitis. The remaining aerated spaces are clear. Mild atrophy and chronic white matter change. Atherosclerotic intracranial calcification. Bilateral l ens replacements. IMPRESSION: No acute intracranial process. Reviewed, dictated and finalized at location K.
== END 2023-05-22 16:38 | disposition home or self-care (01) ==
LOC: ANHIMG 16:39
PROVIDERS: PCP Family Medicine; Visit Provider Student in an Organized Health Care Education/Training Program
DX: R51.9 Headache, unspecified (principal)
CPT/HCPCS: 70450